=== PATIENT | male | born 1970 | race Caucasian/White ===

== ENCOUNTER 2024-03-16 09:10 | Emergency (ER) | payer BC, SELFPAY ==
[2024-03-16] VITALS (11 sets, daily range): BP systolic 127–160; BP diastolic 85–109; PULSE 69–104; RESP 16–20; TEMP 36.2–36.3; O2SAT 96–99; BMI 23.4
--- NOTE | 2024-03-16 09:33 | ED.GENADULT ---
HPI - General Adult General Chief complaint: Allergic Reaction Stated complaint: allergic reaction/lip swelling Time Seen by Provider: 03/16/24 09:30 History of Present Illness HPI narrative: Patient woke up this morning with swollen lips. Denies new medications /foods. No known allergies . Does take lisinopril daily, has been on x10 years per patient. Had similar reaction a few years ago, took a benadryl and it went away after a day. Was not seen at that time. Airway patent, tongue normal. 54-year-old man presenting to the emergency department with concern of swelling of his lips. He says he just woke with this about for and 1/2 hours ago. Initially presented urgent care who directed him to the emergency department. [place] thought maybe just got bit took a Benadryl and over the course the day did improve. This though is the certainly worse. He does have a sensation of swollen tongue or tight throat or difficulty breathing otherwise. No fever. No injury no concerning ingestions. He does take lisinopril/hydrochlorothiazide. Related Data Home Medications ?Medication ?Instructions ?Recorded ?Confirmed lisinopril 20 1 tab PO DAILY 07/27/23 03/16/24 mg-hydrochlorothiazide 25 mg tablet Previous Rx's ?Medication ?Instructions ?Recorded hydrochlorothiazide 25 mg tablet 25 mg PO DAILY #30 tabs 03/16/24 prednisone 20 mg tablet 20 mg PO BID #8 tabs 03/16/24 Allergies Allergy/AdvReac Type Severity Reaction Status Date / Time No Known Drug Allergies Allergy Verified 03/16/24 09:29 Review of Systems Status of ROS: Reports: 6 or more systems reviewed and unremarkable except as noted in History and below [facility] Social History Smoking Status: Never smoker How often do you have a drink containing alcohol: never AUDIT-C Alcohol total score: 0 Non-prescribed substance use: denies use Exam Narrative: Exam Narrative: Pleasant. Speaking easily. I do not hear any stridor or wheeze. Does not appear to be distressed. Lungs are clear. No swelling about the neck. Most notable though is marked soft swelling of the lips and related mucosal tissue. Mild erythema and calor but not cellulitic. I do not see any clear sign of trauma. No tongue swelling. Oropharynx otherwise is normal. Skin is warm and dry without apparent rash. Heart in regular rate and rhythm. Well-perfused. Const: Vital Signs, click to edit/add: Vital Signs - 24 hr 03/16/24 09:26 Temperature 97.3 F L Pulse Rate [Pulse Oximeter] 73 Respiratory Rate 20 Blood Pressure [Ri ght Upper Arm] 160/109 H Pulse Oximetry 97 Oxygen Delivery Me thod Room Air Documenting provider has reviewed patient's vital signs: yes Course Vital Signs Vital signs: Initial Vital Signs Pulse Oximetry 99 03/16/24 09:25 Vital Signs Pulse Oximetry 99 03/16/24 09:25 Temperature 97.2 F L 03/16/24 12:02 Pulse Rate 72 03/16/24 12:02 Respiratory Rate 18 03/16/24 12:02 Blood Pressure 128/85 03/16/24 12:02 Pulse Oximetry 97 03/16/24 12:02 Oxygen Delivery Method Room Air 03/16/24 12:02 Medications Administered Medications: Discontinued Medications Generic Name Dose Route Start Last Admin Trade Name Freq PRN Reason Stop Dose Admin Diphenhydramine HCl 25 mg 03/16/24 09:35 03/16/24 09:47 Diphenhydramine 50 Mg/Ml Inj IVP 03/16/24 09:36 25 mg ONCE ONE Administration Sodium Chloride 1,000 mls @ 1,000 mls/hr 03/16/24 09:35 03/16/24 09:48 0.9 % Sodium Chloride 1000 Ml IV 03/16/24 10:34 1,000 mls/hr .Q1H ONE Administration Methylprednisolone Sodium Succinate 80 mg 03/16/24 09:45 03/16/24 09:49 Methylprednisolone Sod Succ 62.5 Mg/Ml (125) IVP 03/16/24 09:46 80 mg ONCE ONE Administration Medical Decision Making MDM Narrative Medical decision making narrative: Appears to have angioedema. Possibly medication related/iatrogenic. Would anticipate period of monitoring, IV fluids, steroid, and histamine. Mild improvement after period of time of observation in the emergency department. Appears a little annoyed at time here. Is improved in certainly not worsening and so will be discharged. See patient discharge plan for further discussion It is very possible that the lisinopril is contributing to this swelling of your lips/mucous membranes. Recommendations at this time were to discontinue your lisinopril/hydrochlorothiazide and continue only on hydrochlorothiazide at this time. Please call today to follow-up next week with your primary care provider/clinic to discuss further management of your blood pressure. Will be prescribing hydrochlorothiazide as a pill to take alone pending this follow-up evaluation. Also prescribing 4 days of prednisone to continue to settle down this apparent inflammation. If you have worsening swelling, swelling of your tongue, any indication of throat tightening or difficulty breathing, take diphenhydramine and return to the emergency department. Medical Records Medical records reviewed: Yes I reviewed the patient's medical records Discharge Plan Discharge Clinical Impression: Angioedema Patient Disposition: Home, Self-Care Condition: Improved Additional Instructions: It is very possible that the lisinopril is contributing to this swelling of your lips/mucous membranes. Recommendations at this time were to discontinue your lisinopril/hydrochlorothiazide and continue only on hydrochlorothiazide at this time. Please call today to follow-up next week with your primary care provider/clinic to discuss further management of your blood pressure. Will be prescribing hydrochlorothiazide as a pill to take alone pending this follow-up evaluation. Also prescribing 4 days of prednisone to continue to settle down this apparent inflammation. If you have worsening swelling, swelling of your tongue, any indication of throat tightening or difficulty breathing, take diphenhydramine and return to the emergency department. Prescriptions: New hydrochlorothiazide 25 mg tablet 25 mg PO DAILY Qty: 30 0RF prednisone 20 mg tablet 20 mg PO BID Qty: 8 1RF No Action lisinopril-hydrochlorothiazide 20-25 mg tablet 1 tab PO DAILY Follow Up/Referrals: Provider,Not a Local [Primary Care Provider] - Stand Alone Forms: [employer] Info Instructions
[2024-03-16] MEDS: diphenhydrAMINE 50 MG/ML inj 25 MG IVP (09:47)
[2024-03-16] MEDS: 0.9 % SODIUM CHLORIDE 1000 ml 1,000 ML IV (09:48)
[2024-03-16] MEDS: METHYLPREDNISOLONE SOD SUCC 62.5 MG/ML (125) 80 MG IVP (09:49)
--- OUTSIDE RECORDS SUMMARY | 2024-03-16 10:20 | XMS_ITS | Clinical Summary ---
Author Organization [facility] s & [facility] Address [place], [place] [address] Care Team Providers Care Real Estate Transaction Manager Name Role Phone Maulik Redman MD Primary Care Provider Allergies Active Allergy Reactions Criticality Noted Date Comments Venom-Honey Bee Other - Describe In Comment Field 06/15/2014 Large local reaction Medications lisinopril-hydroc hlorothiazide, 20-25 mg, (PRINZIDE, ZESTORETIC) 20-25 mg per tabletIndications :Essential hypertension Take 1 Tablet by mouth once daily. 90 Tablet 3 02/08/2024 Active Active Problems Problem Noted Date Diagnosed Date Anemia of unknown etiology 02/03/2024 Normocytic anemia 03/09/2023 Overview (02/08/2024): Ferritin mildly elevated. Iron studies, B12, folic acid, LDH, haptoglobin, reticulocyte count, peripheral smear, all normal. Colon polyp 02/06/2021 Overview (02/06/2021): Colonoscopy 01/2021 TA, repeat in 7 years with propofol Hyperlipidemia, unspecified 10/01/2016 Bee sting allergy 08/10/2015 Unspecified essential hypertension 01/02/2011 Encounters Date Type Department Care Team Description 2024 Orders Only [facility] [address] [place] [address] Maulik Redman MD Lab 2024 Orders Only [facility] [address] [place] [address] Maulik Redman MD <No scans attached> 02/08/2024 Telephone [facility] [address] [place] [address] Maulik Redman MD Results 02/03/2024 3:45 PM PASSENGER CONDUCTOR Office Visit [facility] [address] [facility] [address] Maulik Redman MD Medication Management 02/03/2024 Travel 12/30/2023 Telephone [facility] [address] [facility] [address] Maulik Redman MD Results 12/29/2023 3:45 PM CDT Orders Only [facility] [address] [place] [address] Lab, [place] [facility] 12/29/2023 Travel 12/22/2023 Orders Only [facility] [address] [facility] [address] Maulik Redman MD Lab (Order Update) from Last 3 Months Immunizations Name Administration Dates Next Due Tdap 10/31/2020,12/31/2009 Zoster (Shingrix-RZV, recombinant) 02/23/2020, Family History Medical History Relation Name Comments Hypertension Brother Hypertension Maternal Aunt Cancer-breast Maternal Grandmother Cancer-colon Maternal Uncle Hypertension Mother Lung cancer Mother Heart Disease Neg. 1 Diabetes Neg. 2 Hyperlipidemia Neg. 3 Stroke Neg. 4 Heart attack Other Cancer-breast Paternal Grandmother Relation Name Status Comments Brother Father Alive Maternal Aunt Maternal Grandmother Maternal Uncle Mother Alive Neg. 1 Neg. 2 Neg. 3 Neg. 4 Other Paternal Grandmother Social History Tobacco Use Types Packs/Day Years Used Date Smoking Tobacco: Former Cigarettes Smokeless Tobacco: Never Tobacco Cessation:Counseling Given: No Alcohol Use Standard Drinks/Week Comments Yes 0 (1 standard drink = 0.6 oz pure alcohol) one to two beers per day average. [facility] Utilities Answer Date Recorded Do you have trouble paying f or utilities (for example, heat, electricity, water, phone)? Yes 02/03/2024 PHQ-2 Answer Date Recorded PHQ-2 TOTAL SCORE 0 09/28/2023 Social Connections Answer Date Recorded Do you often feel lonely or isolated from those around you? 0 02/03/2024 Financial Resource Strain Answer Date R ecorded Difficulty of Paying Living Expenses 3 02/03/2024 Difficulty of Paying Living Expenses Not on file 02/03/2024 Food Insecurity Answer Date Recorded Do you worry your food will run out before you are able to buy more? 1 02/03/2024 Transportation Needs Answer Date Record ed Does lack of transportation keep you from medica l appointments? 1 02/03/2024 Does lack of transportation keep you from work, meetings or getting things that you need? 1 02/03/2024 Housing Stability Answer Date Recorded What is your housing situation today? 1 02/03/2024 Sex and Gender Information Value Date Recorded Sex Assigned at Not on file Legal Sex Male 5:24 AM PASSENGER CONDUCTOR Gender Identity Not on file Sexual Orientation Not on file Obstetrics History Last Filed Vital Signs Vital Sign Reading Time Taken Comments Blood Pressure 128/86 02/03/2024 3:47 PM PASSENGER CONDUCTOR Pulse 86 02/03/2024 3:47 PM PASSENGER CONDUCTOR Temperature 37.1 C (98.8 F) 10/03/2019 3:06 PM CDT Respiratory Rate 20 05/30/2011 3:18 PM CDT Oxygen Saturation 98% 02/03/2024 3:47 PM PASSENGER CONDUCTOR Inhaled Oxygen Concentration - - Weight 68.5 kg (151 lb) 02/03/2024 3:47 PM PASSENGER CONDUCTOR Height 167 cm (5' 5.75) 09/28/2023 3:02 PM CDT Body Mass Index 24.56 09/28/2023 3:02 PM CDT Plan of Treatment Health Maintenance Due Date Last Done Comments Pneumococcal series for age 50+ (1 of 1 - PCV) 2019 COVID-19 vaccine series ( season) 2023 Influenza for age 50-64 11/08/2023 BMI (ht and wt on same day) for age 18+ 09/27/2024 09/28/2023, 01/22/2023, 11/07/2021, Additional history exists Depression screening for age 12+ 09/28/2024 09/29/2023, 09/29/2023, 09/28/2023, Additional history exists Fecal testing non-DNA (FIT,FOBT,iFOBT) for age 45-75 02/14/2025 2024 Lipids for age 45-75 01/23/2028 01/22/2023, 11/07/2021, 10/31/2020, Additional history exists Colonoscopy through age 75 02/06/202802/05, 02/05/2021, 02/05/2021 Tetanus booster 10/31/2030 10/31/2020, 12/31/2009 Zoster (shingles) series for age 50+ Completed 02/23/2020, 10/03/2019 Tdap Completed 10/31/2020, 12/31/2009 Hepatitis C screening for ag e 18-79 Completed 11/07/2021 HIV for age 15-65 Completed 01/22/2023 Procedures Procedure Name Priority Date/Time Associated Diagnosis Comments OCCULT BLOOD IFOBT STOOL Routine 2024 12:00 PM PASSENGER CONDUCTOR Screening for colon cancer PERIPHERAL BLD MORPHOLOGY Routine 02/03/2024 4:48 PM PASSENGER CONDUCTOR Anemia of unknown etiology CBC WITH AUTO DIFFERENTIAL Routine 02/03/2024 4:48 PM PASSENGER CONDUCTOR Anemia of unknown etiology CBC WITH AUTO DIFFERENTIAL Routine 02/03/2024 4:48 PM PASSENGER CONDUCTOR Anemia of unknown etiology RETICULOCYTES Routine 02/03/2024 4:48 PM PASSENGER CONDUCTOR Anemia of unknown etiology CBC WITH AUTO DIFFERENTIAL Routine 02/03/2024 4:36 PM PASSENGER CONDUCTOR IRON PLUS IRON BINDING CAP Routine 02/03/2024 4:36 PM PASSENGER CONDUCTOR Anemia of unknown etiology FERRITIN Routine 02/03/2024 4:36 PM PASSENGER CONDUCTOR Anemia of unknown etiology CELIAC CASCADE PANEL Routine 02/03/2024 4:36 PM PASSENGER CONDUCTOR Anemia of unknown etiology HAPTOGLOBIN Routine 02/03/2024 4:36 PM PASSENGER CONDUCTOR Anemia of unknown etiology LD,TOTAL Routine 02/03/2024 4:36 PM PASSENGER CONDUCTOR Anemia of unknown etiology IRON PLUS IRON BINDING CAP Routine 12/29/2023 3:49 PM CDT Anemia of unknown etiology FERRITIN Routine 12/29/2023 3:49 PM CDT Anemia of unknown etiology CBC WITH AUTO DIFFERENTIAL Routine 12/29/2023 3:49 PM CDT Anemia of unknown etiology BASIC METABOLIC PANEL Routine 12/29/2023 3:49 PM CDT Elevated serum creatinine ANTI HIV 1/2 Routine 01/22/2023 4:29 PM PASSENGER CONDUCTOR Screening for HIV (human immunodeficiency virus) LIPID PANEL W REFLEX MEASURED LDL Routine 01/22/2023 4:29 PM PASSENGER CONDUCTOR Hyperlipidemia, unspecified hyperlipidemia type ANTI HCV Routine 11/07/2021 4:17 PM CDT Need for hepatitis C screening test COLONOSCOPY SCREENING Routine 02/05/2021 7:52 AM PASSENGER CONDUCTOR Screening for colon cancer from Last 3 Months or Most Recently Relevant to Health Maintenance Results * OCCULT BLOOD IFOBT STOOL (2024 12:00 PM PASSENGER CONDUCTOR) STOOL BLOOD ,IFOBT Negative Negative 2024 10:17 PM PASSENGER CONDUCTOR [facility] Stool STOOL SPECIMEN / Unknown Non-Blood / Unknown 2024 12:00 PM PASSENGER CONDUCTOR 2024 9:15 PM PASSENGER CONDUCTOR Maulik Redman MD LABORATORY Final Result [facility] [address] [place] [address], [place] * (ABNORMAL) CBC WITH AUTO DIFFERENTIAL (02/03/2024 4:48 PM PASSENGER CONDUCTOR) WHITE BLOOD COUNT 6.6 4.5 - 11.0 thou/cu mm 02/03/2024 10:37 PM [facility] RED BLOOD COUNT 3.85(L) 4.30 - 5.90 mil/cu mm 02/03/2024 10:37 PM [facility] HEMOGLOBIN 12.4(L) 13.5 - 17.5 g/dL 02/03/2024 10:37 PM [facility] HEMATOCRIT 36.9(L) 37.0 - 53.0 % 02/03/2024 10:37 PM [facility] MCV 96 80 - 100 fL 02/03/2024 10:37 PM [facility] MCH 32.2 26.0 - 34.0 pg 02/03/2024 10:37 PM [facility] MCHC 33.6 32.0 - 36.0 g/dL 02/03/2024 10:37 PM [facility] RDW 14.4 11.5 - 15.5 % 02/03/2024 10:37 PM [facility] PLATELET COUNT 272 140 - 440 thou/cu mm 02/03/2024 10:37 PM [facility] MPV 9.8 6.5 - 11.0 fL 02/03/2024 10:37 PM [facility] NRBC 0.0 % 02/03/2024 10:37 PM [facility] ABS NRBC 0.0 thou /cu mm 02/03/2024 10:37 PM [facility] % NEUT 48.7 % 02/03/2024 10:37 PM [facility] % LYMPH 34.1 % 02/03/2024 10:37 PM [facility] % MONO 13.3 % 02/03/2024 10:37 PM [facility] % EOS 3.0 % 02/03/2024 10:37 PM [facility] % BASO 0.6 % 02/03/2024 10:37 PM PASSENGER CONDUCTOR [facility] % IMMATURE GRAN (METAS,MYELOS,NE OS) 0.3 % 02/03/2024 10:37 PM PASSENGER CONDUCTOR [facility] ABSOLUTE NEUTROPHILS 3.2 1.7 - 7.0 thou/cu mm 02/03/2024 10:37 PM PASSENGER CONDUCTOR [facility] ABSOLUTE LYMPHOCYTES 2.3 0.9 - 2.9 thou/cu mm 02/03/2024 10:37 PM PASSENGER CONDUCTOR [facility] ABSOLUTE MONOCYTES 0.9(H) <0.9 thou/cu mm 02/03/2024 10:37 PM PASSENGER CONDUCTOR [facility] ABSOLUTE EOSINOPHILS 0.2 <0.5 thou/cu mm 02/03/2024 10:37 PM PASSENGER CONDUCTOR [facility] ABSOLUTE BASOPHILS 0.0 <0.3 thou/cu mm 02/03/2024 10:37 PM PASSENGER CONDUCTOR [facility] ABSOLUTE IMMATURE GRANULOCYTES(MET ,MYELOS,PROS) 0.0 <0.3 thou/cu mm 02/03/2024 10:37 PM PASSENGER CONDUCTOR [facility] Blood BLOOD SPECIMEN / Unknown [facility] / Unknown 02/03/2024 4:48 PM PASSENGER CONDUCTOR 02/03/2024 4:48 PM PASSENGER CONDUCTOR us Maulik Redman MD HEMATOLOGY Final Result [facility] [address] [place] [address], * PERIPHERAL BLD MORPHOLOGY (02/03/2024 4:48 PM PASSENGER CONDUCTOR) Case Report Special Hematology Report Case: [id number] Authorizing Provider: Maulik Redman, Collected: 02/03/2024 [place] [facility] Ordering Location: [facility] Received: 02/03/2024 1648 Clinic Pathologist: Tejinder Riley MD Specimen: Blood 02/05/2024 6:42 PM PASSENGER CONDUCTOR [facility] Final Diagnosis PERIPHERAL BLOOD: 1. Mild normocytic anemia with occasional target cells 2. See comment 02/05/2024 6:42 PM PASSENGER CONDUCTOR [facility] Comment The features of the anemia are nonspecific. Occasional target cells are present, which may be seen as a nonspecific finding associated with anemia as well as in conditions of liver disease. The differential includes iron deficiency, anemia of chronic disease, anemia of chronic renal insufficiency, anatomic blood loss and medication effect. There is no morphologic evidence of hemolysis or distinct features of dysplasia. This case was also reviewed by Dot Anaya MT, MS (ASC). 02/05/2024 6:42 PM PASSENGER CONDUCTOR [facility] Clinical Information The patient is a 53-year-old male. Pertinent clinical information: Mild normocytic anemia. Per EPIC: Additional history includes hypertension. 02/03/24 16:36 FERRITIN: 457 (H) IRON: 63 IRON BINDING CAPACITY : 301 IRON,% SATURATION : 21 LD,TOTAL: 149 02/05/2024 6:42 PM PASSENGER CONDUCTOR [facility] CBC and Differential HEMATOLOGY PARAMETERS Tested at: [facility] RESULTS EXPECTED VALUES WBC: 6.6 4.5-75a7797/cumm RBC: 3.85 4.30-5.90 mil/cumm DECREASED HGB: 12.4 13.5-17.5 gm/di DECREASED HCT: 36.9 37-53% DECREASED MCV: 96.0 80-100 fl NORMOCYTIC MCH: 32.2 26-34 pg MCHC: 33.6 32-36 gm/dl NORMOCHROMIC RDW: 14.4 11.5-15.5% PLT: 272 [id number]/uL MPV: 9.8 6.5-11 fl Retic: 1.0 0.5-1.5% Differential Absolute (%) Expected (%) (x10*9/L) (x10*9/L) Neutrophils: 3.2 (48.5) 1.7-7.0 (42-72%) Lymphocytes: 2.3 (34.8) 0.9-2.9 (20-44%) Monocytes: 0.9 (13.6) <0.9 (0-11%) ELEVATED Eosinophils: 0.2 (3) <0.5 (0-2%) 02/05/2024 6:42 PM PASSENGER CONDUCTOR [facility] Microscopic Description The final diagnosis is based on microscopic examination of an appropriately stained blood smear. 02/05/2024 6:42 PM PASSENGER CONDUCTOR [facility] Additional Information Interpreted at [facility] - [address], [place] [address] 02/05/2024 6:42 PM PASSENGER CONDUCTOR [facility] Blood BLOOD SPECIMEN / Unknown [facility] / Unknown 02/03/2024 4:48 PM PASSENGER CONDUCTOR 02/03/2024 4:48 PM PASSENGER CONDUCTOR Comment:CURRENT MEDICATIONSC urrent Outpatient Medications: lisinopril-hydrochlorothiazide, 20-25 mg, (PRINZIDE, ZESTORETIC) 20-25 mg per tablet, Take 1 Tablet by mouth once daily., Disp: 90 Tablet, Rfl: 3 us Maulik Redman MD HEMATOLOGY Final Result Performing Organization Address City/[facility] Co de Phone Number [facility] [address] [place] [id number], [place] * RETICULOCYTES (02/03/2024 4:48 PM PASSENGER CONDUCTOR) RETIC% 1.0 0.5 - 1.5 % 02/03/2024 10:37 PM PASSENGER CONDUCTOR [facility] RETIC (ABSOLUTE) 0.04 0.03 - 0.08 mil/cu mm 02/03/2024 10:37 PM PASSENGER CONDUCTOR [facility] Blood BLOOD SPECIMEN / Unknown [facility] / Unknown 02/03/2024 4:48 PM PASSENGER CONDUCTOR 02/03/2024 4:48 PM PASSENGER CONDUCTOR Maulik Redman MD HEMATOLOGY Final Result Performing Organization Address City/[facility]/ZIP Co de Phone Number [facility] [address] [place] [address], [place] * (ABNORMAL) CELIAC CASCADE PANEL (02/03/2024 4:36 PM PASSENGER CONDUCTOR) [facility] CELIAC DISEASE COMPREHENSIVE PANEL INTERPRETATION [facility] Comment: No serological evidence of celiac disease. Total serum IgA is elevated. Consider mucosal inflammatory conditions or underlying gammopathy. TISSUE TRANSGLUTAMINASE AB, IGA <1.0 U/mL [facility] Comment: Value Interpretation ----- <15.0 Antibody not detected > or = 15.0 Antibody detected IMMUNOGLOBULIN A 452(H) 47 - 310 mg/dL [facility] Blood BLOOD SPECIMEN / Unknown 02/03/2024 4:36 PM PASSENGER CONDUCTOR 02/03/2024 4:37 PM PASSENGER CONDUCTOR Maulik Redman MD SEND OUTS Final Result Performing Organization Address [facility] Co de Phone Number [employer] [facility] [address] [place] [address], [employer] [address] [place] [address] * IRON PLUS IRON BINDING CAP (02/03/2024 4:36 PM PASSENGER CONDUCTOR) Only the most recent of2 resultswithin the time period is included. [facility] IRON, TOTAL 63 50 - 180 mcg/dL [facility] IRON BINDING CAPACITY 301 250 - 425 mcg/dL (calc) [facility] % SATURATION 21 20 - 48 % (calc) [facility] Blood BLOOD SPECIMEN / Unknown 02/03/2024 4:36 PM PASSENGER CONDUCTOR 02/03/2024 4:37 PM PASSENGER CONDUCTOR us Maulik Redman MD CHEMISTRY Final Result Performing Organization Address [facility]/ZIP Co de Phone Number [employer] [facility] [address] [facility] [place] [address], [place] [phone] [facility] [place] [address] [place] [address] * LD,TOTAL (02/03/2024 4:36 PM PASSENGER CONDUCTOR) Pathologist [facility] LD 149 120 - 250 U/L [facility] Blood BLOOD SPECIMEN / Unknown 02/03/2024 4:36 PM PASSENGER CONDUCTOR 02/03/2024 4:37 PM PASSENGER CONDUCTOR us Maulik Redman MD CHEMISTRY Final Result [facility] [address] [place] [address], [facility] [address] [place] [address] * (ABNORMAL) CBC AND DIFFERENTIAL (02/03/2024 4:36 PM PASSENGER CONDUCTOR) Only the most recent of2 resultswithin the time period is included. Pathologist [facility] WHITE BLOOD CELL COUNT 6.3 3.8 - 10.8 Thousand/u L [facility] RED BLOOD CELL COUNT 3.93(L) 4.20 - 5.80 Million/uL [facility] HEMOGLOBIN 12.6(L) 13.2 - 17.1 g/dL [facility] HEMATOCRIT 38.6 38.5 - 50.0 % [facility] MCV 98.2 80.0 - 100.0 fL [facility] MCH 32.1 27.0 - 33.0 pg [facility] MCHC 32.6 32.0 - 36.0 g/dL [facility] Comment: For adults, a slight decrease in the calculated MCHC value (in the range of 30 to 32 g/dL) is most likely not clinically significant; however, it should be interpreted with caution in correlation with other red cell parameters and the patient's clinical condition. RDW 13.4 11.0 - 15.0 % [facility] PLATELET COUNT 288 140 - 400 Thousand/u L [facility] MPV 10.3 7.5 - 12.5 fL [facility] ABSOLUTE NEUTROPHILS 3,119 1,500 - 7,800 cells/uL [facility] ABSOLUTE LYMPHOCYTES 2,142 850 - 3,900 cells/uL [facility] ABSOLUTE MONOCYTES 775 200 - 950 cells/uL [facility] ABSOLUTE EOSINOPHILS 214 15 - 500 cells/uL [facility] ABSOLUTE BASOPHILS 50 0 - 200 cells/uL [facility] NEUTROPHILS 49.5 % [facility] LYMPHOCYTES 34.0 % [facility] MONOCYTES 12.3 % [facility] EOSINOPHILS 3.4 % [facility] BASOPHILS 0.8 % [facility] 02/03/2024 4:36 PM PASSENGER CONDUCTOR 02/03/2024 4:37 PM PASSENGER CONDUCTOR us Maulik Redman MD HEMATOLOGY Final Result [facility] [address] [place] [address], [place] [phone] [facility] [address] [facility] [address] * HAPTOGLOBIN (02/03/2024 4:36 PM PASSENGER CONDUCTOR) [facility] HAPTOGLOBIN 153 43 - 212 mg/dL [facility] Blood BLOOD SPECIMEN / Unknown 02/03/2024 4:36 PM PASSENGER CONDUCTOR 02/03/2024 4:37 PM PASSENGER CONDUCTOR us Maulik Redman MD CHEMISTRY Final Result [facility] [employer] [facility] [address] [facility] [place] [address], [place] [phone] [facility] [address] [facility] [address] * (ABNORMAL) FERRITIN (02/03/2024 4:36 PM PASSENGER CONDUCTOR) Only the most recent of2 resultswithin the time period is included. [facility] FERRITIN 457(H) 38 - 380 ng/mL [facility] Blood BLOOD SPECIMEN / Unknown 02/03/2024 4:36 PM PASSENGER CONDUCTOR 02/03/2024 4:37 PM PASSENGER CONDUCTOR Maulik Redman MD CHEMISTRY Final Result [employer] [facility] [address] [place] [address], [place] [phone] [facility] [address] [place] [address] * (ABNORMAL) BASIC METABOLIC PANEL (12/29/2023 3:49 PM CDT) [facility] GLUCOSE 92 65 - 99 mg/dL [facility] Comment: Fasting reference interval UREA NITROGEN (BUN) 29(H) 7 - 25 mg/dL [facility] CREATININE 1.17 0.70 - 1.30 mg/dL [facility] EGFR 74 > OR = 60 mL/min/1.7 3m2 [facility] BUN/CREATININE RATIO 25(H) 6 - 22 (calc) [facility] SODIUM 139 135 - 146 mmol/L [facility] POTASSIUM 4.8 3.5 - 5.3 mmol/L [facility] CHLORIDE 100 98 - 110 mmol/L [facility] CARBON DIOXIDE 31 20 - 32 mmol/L [facility] ELECTROLYTE BALANCE 8 7 - 17 mmol/L (calc) [facility] CALCIUM 9.5 8.6 - 10.3 mg/dL [facility] Blood BLOOD SPECIMEN / Unknown 12/29/2023 3:49 PM CDT 12/29/2023 3:49 PM CDT Maulik Redman MD CHEMISTRY Final Result [employer] [facility] [address] [facility] [place] [address], [place] [phone] [employer] [address] [address] * (ABNORMAL) LIPID PANEL W REFLEX MEASURED LDL (01/22/2023 4:29 PM PASSENGER CONDUCTOR) CHOLESTEROL,TOTAL 184 100 - 199 mg/dL 01/23/2023 3:14 PM PASSENGER CONDUCTOR [facility] Comment: Cholesterol, Total Reference Ranges Desirable <200 mg/dL Borderline 200-239 mg/dL High >=240 mg/dL TRIGLYCERIDES 173(H) <150 mg/dL 01/23/2023 3:14 PM PASSENGER CONDUCTOR [facility] HDL CHOLESTEROL 70 >40 mg/dL 3:14 PM PASSENGER CONDUCTOR [facility] NON-HDL CHOLESTEROL 114 <145 mg/dl 01/23/2023 3:14 PM PASSENGER CONDUCTOR [facility] CHOL/HDL RATIO 2.63 <4.50 01/23/2023 3:14 PM PASSENGER CONDUCTOR [facility] LDL CHOLESTEROL 79 <=130 mg/dL 01/23/2023 3:14 PM PASSENGER CONDUCTOR [facility] VLDL CHOLESTEROL 35(H) <=30 mg/dL 01/23/2023 3:14 PM PASSENGER CONDUCTOR [facility] TRA LABORATORY PROVIDER ORDERED STATUS RANDOM 01/23/2023 3:14 PM PASSENGER CONDUCTOR [facility] TRA [facility]ATORY Blood BLOOD SPECIMEN / Unknown Venipuncture / Unknown 01/22/2023 4:29 PM PASSENGER CONDUCTOR 01/22/2023 4:29 PM PASSENGER CONDUCTOR us Maulik Redman MD CHEMISTRY Final Result [facility] [address] [place] [address], * ANTI HIV 1/2 (01/22/2023 4:29 PM PASSENGER CONDUCTOR) HIV-1/HIV-2 SCREEN Non-Reacti ve Non-Reacti ve 01/23/2023 3:00 PM PASSENGER CONDUCTOR [facility] Comment:HIV-1 p24 and HIV-1/ HIV-2 Ab Not Detected. Blood BLOOD SPECIMEN / Unknown Venipuncture / Unknown 01/22/2023 4:29 PM PASSENGER CONDUCTOR 01/22/2023 4:29 PM PASSENGER CONDUCTOR us Maulik Redman MD SEND OUTS Final Result [facility] [address] [place] [address], [place] * ANTI HCV (11/07/2021 4:17 PM CDT) HEPATITIS C ANTIBODY Non-React loco Non-React loco 11/08/2021 2:54 PM CDT [facility] Comment:Antibodies to HCV no t detected; does not exclude the possibility of exposure to HCV. Blood BLOOD SPECIMEN / Unknown Venipuncture / Unknown 11/07/2021 4:17 PM CDT 11/07/2021 4:20 PM CDT us Maulik Redman MD SEND OUTS Final Result Performing Organization Address City/[facility]/ZIP Co de Phone Number [facility] [address] [place] [address], [place] * COLONOSCOPY (02/05/2021 7:46 AM PASSENGER CONDUCTOR) 02/05/2021 7:46 AM PASSENGER CONDUCTOR Narrative Transcriptions Curtis Calvo MD - 02/05/2021 9:10 AM CST Patient Name: Stefan Perales Procedure Date: 02/05/2021 Gender: Male Date of : 1970 Admit Type: Outpatient Procedure: Colonoscopy Proceduralist: Curtis Calvo MD , Kika Flores (Nurse) Referring MD: Maulik Redman Indications/Pre-Op Diagnosis: Screening for colorectal malignant neoplasm, This is the patient's first colonoscopy Medications: Fentanyl 200 micrograms IV, Midazolam 4 mgIV, The level of sedation administered wasmoderate Procedure Description: The patient had risks, benefits and alternatives explained to andgave informed consent. The patient had a stable cardiopulmonary status and judged an adequate candidate for conscious sedation. The colonoscope was passed through the anus and advanced to thececum, identified by appendiceal orifice and ileocecal valve. Thecolonoscopy was performed without difficulty. The patient tolerated the procedure well. The quality of the bowel preparation was good. The ileocecal valve, appendiceal orifice, and rectum were photographed. Complications: No immediate complications. Estimated Blood Loss & Specimen: Estimated blood loss: none. Specimen collected - Yes and sent to Laboratory Findings: The perianal and digital rectal examinations were normal. A 3 mm polyp was found in the transverse colon. The polyp wassessile. The polyp was removed with a cold snare. Resection and retrieval were complete. The exam was otherwise without abnormality on direct and retroflexion views. Impressions/Post-Op Diagnosis: - One 3 mm polyp in the transverse colon, removed with a cold snare. Resected and retrieved. - The examination was otherwise normal on direct and retroflexionviews. Recommendation: - Patient has a contact number available for emergencies. The signsand symptoms of potential delayed complications were discussed with the patient. Return to normal activities tomorrow. Written discharge instructions were provided to the patient. - Resume previous diet. - Continue present medications. - Await pathology results. - Repeat colonoscopy is recommended. The colonoscopy date will be determined after pathology results from today's exam become available for review. - Patient's sedation for a repeat study will require Anesthesia staff assistance. Moderate Sedation: Moderate (conscious) sedation was administered by the endoscopy nurse and supervised by the endoscopist. The following parameters were monitored: oxygen saturation, heart rate, respiratory rate, blood pressure, adequacy of pulmonary ventilation and reponse to care. Please refer to the patient's medical record flowsheets and nursing notes for moderate sedation details. Total physician intraservice time was 18 minutes. Curtis Calvo MD 02/05/2021 9:09:51 AM This report has been signed electronically. Note Initiated On: 02/05/2021 7:46 AM Procedure Code(s): --- Professional --- 36707, Colonoscopy, flexible; with removalof tumor(s), polyp(s), or other lesion(s) bysnare technique Diagnosis Code(s): --- Professional --- Z12.11, Encounter for screening formalignant neoplasm of colon K63.5, Polyp of colon CPT copyright 2020 [employer]. All rights reserved. The codes documented in this report are preliminary and upon medical biller/coder reviewmay be revised to meet current compliance requirements. Scope In: 8:44:51 AM Scope Withdrawal Time 0 hours 8 minutes 3 seconds Scope Out: 9:00:52 AM Curtis Calvo MD PROCEDURE ORD Final Res ult from Last 3 Months or Most Recently Relevant to Health Maintenance Insurance [facility] * Guarantor: [employer] Account Type Relation to Patient Date of Phone Billing Address [facility] Employer [address] [place], [place] [address] Care Teams Real Estate Transaction Manager Relationship Specialty Start Date End Date Maulik Redman MD [address] [place] [address] PCP - General Family Practice 01/20/12
== END 2024-03-16 12:16 | disposition home or self-care (01) ==
PROVIDERS: Emergency Provider Family Medicine
DX: T78.3XXA Angioneurotic edema, initial encounter (principal)
CPT/HCPCS: 94761; 96374; 96375; 99284; J1200; J2919; J7030